=== PATIENT | male | born 1990 | race Caucasian/White ===

== ENCOUNTER 2017-01-06 22:58 | Emergency (ER) | payer SELFPAY ==
[~2017-01-06] VITALS: Ht 177.8 cm; Wt 64.0 kg
[~2017-01-06 22:58] MED LIST: HYDR-902 PO; IBUP-1542 PO
[2017-01-06 23:06] VITALS: Ht 177.8 cm; Wt 64.0 kg
[2017-01-06] MEDS ORDERED: SOD CHLORIDE 0.9% 1,000 ML IV STA (23:20)
[2017-01-06] MEDS ORDERED: KETOROLAC 30 MG INJ IV STA (23:20)
[2017-01-06] MEDS ORDERED: ONDANSETRON 4 MG INJ IV STA (23:20)
[2017-01-06 23:30] VITALS: BP 127/67; PULSE 103; RESP 20
[2017-01-06] MEDS: ACETAMINOPHEN 500 MG TAB PO STA (23:43)
[2017-01-06 23:46] LABS: ADD SCAN DIFF NO
[2017-01-06 23:49] LABS: BASOPHILS % 0.4 % (0.0-2.0); HEMATOCRIT 39.7 % (42.0-52.0); HEMOGLOBIN 14.2 g/dl (14.0-18.0); LYMPHOCYTES % 12.7 % (15.0-51.0); MEAN CORPUSCULAR HEMOGLOBIN 30.8 pg (29.0-33.0); MEAN CORPUSCULAR HGB CONC 35.8 g/dl (32.0-37.0); MEAN CORPUSCULAR VOLUME 86.1 fl (82.0-101.0); MEAN PLATELET VOLUME 9.7 fl (7.4-10.4); MONOCYTE # 0.7 10^3/ul (0.3-0.9); MONOCYTES % 9.3 % (0.0-11.0); NEUTROPHIL # 5.8 10^3/ul (1.6-7.5); NEUTROPHILS % 77.2 % (39.0-77.0); PLATELET COUNT 224 10^3/UL (140-415); RED BLOOD COUNT 4.61 10^6/ul (4.70-6.10); RED CELL DISTRIBUTION WIDTH 11.8 % (11.5-14.5); WHITE BLOOD COUNT 7.6 10^3/ul (4.8-10.8)
--- NOTE | 2017-01-07 00:06 | RADRPT ---
PROCEDURE: XR Chest. CLINICAL INDICATION: Chest pain. Fever TECHNIQUE: Portable AP upright view of the chest was obtained. COMPARISON: None. FINDINGS: The cardiomediastinal silhouette is within normal limits. Subtle patchy infiltrate within the right upper lobe is noted with vague a left suprahilar / perihilar infiltrate also present. The diaphrag m is normal in location of the costophrenic angles are sharp. The osseous structures are intact wit h no evidence for acute abnormality. RPTAT:HJJR IMPRESSION: Subtle right upper lobe and left perihilar infiltrates concerning for pneumonia. Follow-up evaluatio n after medical therapy is recommended. Physician Adina Date Time Electronically viewed and signed by Celso Ambrose Physician on 01/07/2017 00:06 JR/
[2017-01-07 00:13] LABS: INR 1.33; PARTIAL THROMBOPLASTIN TIME 29.2 Sec (25.0-35.0); PROTIME 16.6 Sec (12.2-14.2); PT RATIO 1.3
[2017-01-07] MEDS ORDERED: CEFTRIAXONE 1 GM/50 ML (PMX) 50 ML IVPB STA (00:17)
[2017-01-07 00:18] LABS: ALANINE AMINOTRANSFERASE 35 IU/L (13-69); ALBUMIN 4.8 g/dl (3.3-4.9); ALBUMIN/GLOBULIN RATIO 1.77; ALKALINE PHOSPHATASE 79 IU/L (42-121); ANION GAP 19 (8-16); ASPARTATE AMINO TRANSFERASE 43 IU/L (15-46); BILIRUBIN,INDIRECT 0.4 mg/dl (0-1.1); BILIRUBIN,TOTAL 0.4 mg/dl (0.2-1.3); BLOOD UREA NITROGEN 8 mg/dl (7-20); CALCIUM 9.7 mg/dl (8.4-10.2); CARBON DIOXIDE 19 mmol/L (21-31); CHLORIDE 98 mmol/L (97-110); CREATININE 1.11 mg/dl (0.61-1.24); GLUCOSE 120 mg/dl (70-220); POTASSIUM 4.1 mmol/L (3.5-5.1); SODIUM 132 mmol/L (135-144); TOTAL PROTEIN 7.5 g/dl (6.1-8.1)
[2017-01-07 00:28] LABS: TROPONIN-I < 0.012 ng/ml (0.00-0.12)
[2017-01-07] MEDS: ACETAMINOPHEN 500 MG TAB PO STA (00:39)
--- NOTE | 2017-01-07 01:01 | ERD ---
ER Documentation Chief Complaint Date/Time DATE: 01/07/17 TIME: 01:01 Chief Complaint fever, body aches, sore throat, back pain x 3 days HPI This is a 26-year-old male presenting to the emergency department complaining of fever, body aches, sore throat, cough, nausea, nonbilious nonbloody vomiting and nonbloody diarrhea for the past 3 days. Patient states that he was seen at a different facility in which they have given him Bactrim and Zofran. Patient states that the medications have not helped him. He states that he is taken to take well at 6 PM without any relief. Patient denies any abdominal pain, chest pain or shortness of breath. ROS All systems reviewed and are negative except as per history of present illness. Medications Home Meds Active Scripts Acetaminophen* (Tylenol*) 325 Mg Tablet, 2 TAB PO Q4 Y for PAIN AND OR ELEVATED TEMP, #30 TAB Prov:ROSA RICHTER PA-C 01/07/17 Electrolyte,Oral (Pedialyte) 1,000 Ml Solution, 100 ML PO Q6, #1000 ML Prov:ROSA RICHTER PA-C 01/07/17 Azithromycin* (Zithromax*) 250 Mg Tablet, 250 MG PO .ZPACK DIRECTED, #6 TAB TAKE 500 MG (2 TABS) THE FIRST DAY THEN 250 MG (1 TAB) DAYS 2-5 Prov:ROSA RICHTER PA-C 01/07/17 Hydrocodone/Acetaminophen ([place] 10-325 Tablet) 1 Each Tablet, 1 TAB PO Q6H Y for PAIN, #20 TAB Prov:PHONG JUAN PA-C 03/16/16 Ibuprofen* (Motrin*) 600 Mg Tab, 600 MG PO Q6H Y for PAIN AND OR ELEVATED TEMP, #30 TAB Prov:PHONG JUAN PA-C 03/16/16 Allergies Allergies: Coded Allergies: No Known Allergy (Unverified , 01/06/17) PMhx/Soc Medical and Surgical Hx: pt denies Medical Hx, pt denies Surgical Hx History of Surgery: No Hx Neurological Disorder: No Hx Respiratory Disorders: No Hx Cardiac Disorders: No Hx Psychiatric Problems: No Hx Miscellaneous Medical Probl: No Hx Alcohol Use: No Hx Substance Use: No Hx Tobacco Use: No Smoking Status: Never smoker Physical Exam Vitals Vital Signs Date Time Temp Pulse Resp B/P Pulse Ox O2 Delivery O2 Flow Rate FiO2 01/06/17 23:30 103 20 127/67 99 Room Air 01/06/17 23:06 104.3 101 20 126/59 100 Physical Exam GENERAL: well-developed/well-nourished, in no apparent distress, non-toxic appearing HEAD: NC/AT, no swelling noted in frontal or maxillary areas EARS: bilateral tympanic membrane is intact without erythema or effusion NARES: \congested THROAT: oropharynx non-erythematous without exudates EYES: Conjunctiva normal NECK: Supple, no lymphadenopathy PULM: CTA bilaterally, no rales, rhonchi, or wheezing heard CV: Normal S1S2, RRR, good capillary refill GI: Soft, non-distended, normal bowel sounds, non-tender BACK: No midline tenderness, no masses EXT No clubbing, cyanosis, or edema NEURO: Alert and Orientated SKIN: Intact, normal turgor PSYCH: Normal mood and mentation Result Diagram: 01/06/17 2330 01/06/17 2330 Results 24 hrs Laboratory Tests Test 01/06/17 23:30 01/07/17 00:38 White Blood Count 7.610^3/ul Red Blood Count 4.6110^6/ul Hemoglobin 14.2g/dl Hematocrit 39.7% Mean Corpuscular Volume 86.1fl Mean Corpuscular Hemoglobin 30.8pg Mean Corpuscular Hemoglobin Concent 35.8g/dl Red Cell Distribution Width 11.8% Platelet Count 69638^3/UL Mean Platelet Volume 9.7fl Neutrophils % 77.2% Lymphocytes % 12.7% Monocytes % 9.3% Eosinophils % 0.0% Basophils % 0.4% Nucleated Red Blood Cells % 0.0/100WBC Neutrophils # 5.810^3/ul Lymphocytes # 1.010^3/ul Monocytes # 0.710^3/ul Eosinophils # 0.010^3/ul Basophils # 0.010^3/ul Nucleated Red Blood Cells # 0.010^3/ul Prothrombin Time 16.6Sec Prothrombin Time Ratio 1.3 INR International Normalized Ratio 1.33 Activated Partial Thromboplast Time 29.2Sec Sodium Level 132mmol/L Potassium Level 4.1mmol/L Chloride Level 98mmol/L Carbon Dioxide Level 19mmol/L Anion Gap 19 Blood Urea Nitrogen 8mg/dl Creatinine 1.11mg/dl Glucose Level 120mg/dl Lactic Acid Level 1.8mmol/L Calcium Level 9.7mg/dl Total Bilirubin 0.4mg/dl Direct Bilirubin 0.00mg/dl Indirect Bilirubin 0.4mg/dl Aspartate Amino Transf (AST/SGOT) 43IU/L Alanine Aminotransferase (ALT/SGPT) 35IU/L Alkaline Phosphatase 79IU/L Troponin I < 0.012ng/ml Total Protein 7.5g/dl Albumin 4.8g/dl Globulin 2.70g/dl Albumin/Globulin Ratio 1.77 Urine Color YELLOW Urine Clarity CLEAR Urine pH 7.0 Urine Specific [place] 1.018 Urine Ketones 2+mg/dL Urine Nitrite NEGATIVEmg/dL Urine Bilirubin NEGATIVEmg/dL Urine Urobilinogen NEGATIVEmg/dL Urine Leukocyte Esterase NEGATIVELeu/ul Urine Hemoglobin NEGATIVEmg/dL Urine Glucose NEGATIVEmg/dL Urine Total Protein NEGATIVEmg/dl Current Medications Medications (Trade) Dose Ordered Sig/Karolyn Route PRN Reason Start Time Stop Time Status Last Admin Dose Admin Acetaminophen (Tylenol Tab) 1,000 mg ONCE STAT PO 01/06/17 23:20 01/06/17 23:22 DC 01/07/17 00:39 Ketorolac Tromethamine 30 mg 30 mg ONCE STAT IV 01/06/17 23:20 01/06/17 23:22 DC 01/06/17 23:43 Sodium Chloride (NS) 1,000 ml @ 2,000 mls/hr Q30M STAT IV 01/06/17 23:20 01/06/17 23:49 DC 01/06/17 23:44 Ondansetron HCl 4 mg 4 mg ONCE STAT IV 01/06/17 23:20 01/06/17 23:22 DC 01/06/17 23:43 Ceftriaxone Sodium (Rocephin) 50 ml @ 100 mls/hr ONCE STAT IVPB 01/07/17 00:17 01/07/17 00:46 DC 01/07/17 00:39 Azithromycin (Zithromax) 500 mg ONCE STAT PO 01/07/17 01:42 01/07/17 01:45 DC Procedures/MDM This is a 26-year-old male presenting to the emergency department who was febrile complaining of fever, sore throat, cough, vomiting diarrhea for the past 3 days. This is likely a viral syndrome with secondary pneumonia. On examination, patient did not have any evidence of respiratory distress. He is breathing well on room air. Chest x-ray was done and showed subtle right upper lobe and left perihilar infiltrates concerning for pneumonia. IV access established, patient was given 1 L fluids. He is given Tylenol and Toradol. I have reassessed and he significant feels a lot better. Lab work was done. Lab work was drawn. CBC did not show any evidence of leukocytosis or anemia. CMP did not show any evidence of renal, liver, or electrolyte abnormalities. Lipase was normal. UA did not show any evidence of hemoglobin or urinary tract infection. Patient was given 1 g of subtraction through the IV in the ED. he is stable to be discharged home to follow-up with primary care physician. Prescription for Tylenol, Zithromax and Pedialyte was given. I discussed with him to return the ER for any worsening symptoms. Understands and agrees with CXR: Subtle right upper lobe and left perihilar infiltrates concerning for pneumonia. Follow-up evaluation after medical therapy is recommended. Departure Diagnosis: Primary Impression: Nausea vomiting and diarrhea Additional Impression: Pneumonia Condition: Stable ROSA RICHTER PA-C Jan 07, 2017 01:01
[2017-01-07 01:09] LABS: ADD UMIC NO; UR ASCORBIC ACID NEGATIVE (NEGATIVE); UR BILIRUBIN (Dip) NEGATIVE (NEGATIVE); UR BLOOD (Dip) NEGATIVE (NEGATIVE); UR CLARITY CLEAR (CLEAR); UR COLOR YELLOW (YELLOW); UR GLUCOSE (Dip) NEGATIVE (NEGATIVE); UR KETONES (Dip) 2+ mg/dL (NEGATIVE); UR LEUKOCYTE ESTERASE (Dip) NEGATIVE Leu/ul (NEGATIVE); UR NITRITE (Dip) NEGATIVE (NEGATIVE); UR SPECIFIC GRAVITY (Dip) 1.018 (1.003-1.030); UR TOTAL PROTEIN (Dip) NEGATIVE (NEGATIVE); UR UROBILINOGEN (Dip) NEGATIVE (NEGATIVE)
[2017-01-07] MEDS ORDERED: AZITHROMYCIN 250 MG TAB PO STA (01:42)
[2017-01-07] MEDS ORDERED: AZIT250T94 PO (01:45)
[2017-01-07] MEDS ORDERED: ELEC100080 PO (01:45)
[2017-01-07] MEDS ORDERED: ACET325T33 PO (01:46)
== END 2017-01-07 02:04 | disposition home or self-care (01) ==
LOC: FTE 22:58
DX: R11.2 Nausea with vomiting, unspecified (principal); R19.7 Diarrhea, unspecified; J18.9 Pneumonia, unspecified organism; R07.9 Chest pain, unspecified
CPT/HCPCS: 36415; 71010; 80053; 81003; 83605; 84484; 85025; 85610; 85730; 87040; 96374; 96375; 99284; J0696; J1885; J2405; J7030